=== PATIENT | male | born 1960 | race Caucasian/White ===

== ENCOUNTER 2022-07-17 05:32 | Observation (INO) ==
[2022-07-17] MEDS ORDERED: ceFAZolin 2 GM in NS PREMIX 2 GM/100 ML BAG IVPB ONE (05:59)
[2022-07-17] MEDS ORDERED: Tranexamic Acid 1 GM/100ML BAG 2,000 MG/200 ML BAG IV ONE (05:59)
[2022-07-17] MEDS ORDERED: Lactated Ringers 1000 ml BAG 1,000 ML IV SCH (06:00)
[2022-07-17] MEDS ORDERED: Buffered Lidocaine 1% SYRIN 1 ml INTRADERM ONE (06:00)
[2022-07-17] MEDS ORDERED: BUPIVACAINE **LIPOSOME/PF 13.3 MG/ML (266MG/ 20ML) VIAL (RESTRICTED) INFIL ONE (06:00)
[2022-07-17] MEDS ORDERED: Bupivacaine 0.25% SDV 30 ML ONE (07:02)
[2022-07-17] MEDS ORDERED: Bupivacaine 0.25% EPI 200,000 30 ML SDV ONE (07:02)
[2022-07-17] MEDS ORDERED: Ondansetron 4 mg VIAL 2 MG/ML 2 ml VIAL ONE (07:06)
[2022-07-17] MEDS ORDERED: Phenylephrine IV 10 MG/ML 1 ml VIAL ONE (07:06)
[2022-07-17] MEDS ORDERED: fentaNYL 100 mcg/2 ml 50 MCG/ML VIAL ONE ×4 (07:06→12:05)
[2022-07-17] MEDS ORDERED: Midazolam 2 mg/2 ml VIAL 1 mg/ml 2 ml VIAL (2 mg) ONE (07:06)
[2022-07-17] MEDS ORDERED: Propofol 10 MG/ML 20 ML BTL ONE ×2 (07:06→08:30)
[2022-07-17] MEDS ORDERED: Lidocaine 2% PF 5 ML VIAL ONE (07:06)
[2022-07-17] MEDS ORDERED: Dexamethasone IV 4 MG/ML VIAL 1 ml VIAL ONE (07:06)
[2022-07-17] MEDS ORDERED: Bupivacaine 0.5% SDV PF 30ML VIAL ONE (07:09)
[2022-07-17] MEDS ORDERED: Ketamine HCL 50 mg/ml 10 ml VIAL (500 MG) ONE (07:55)
[2022-07-17] MEDS ORDERED: Ondansetron 4 mg VIAL 2 MG/ML 2 ml VIAL IV PRN ×2 (08:27→11:02)
[2022-07-17] MEDS ORDERED: Naloxone 0.4 mg VIAL 0.4 mg/ml 1 ml VIAL IV PRN (08:27)
[2022-07-17] MEDS ORDERED: Acetaminophen IV 1 GM/100ML 1,000 MG/100 ML BAG IV ONE (08:54)
[2022-07-17] MEDS ORDERED: Magnesium Hydroxide LIQ 30 ML UDC PO PRN (11:02)
[2022-07-17] MEDS ORDERED: Lactulose 30 ml UDC PO PRN (11:02)
[2022-07-17] MEDS ORDERED: Ondansetron ODT 4 mg TAB 4 MG TAB PO PRN (11:02)
[2022-07-17] MEDS ORDERED: Morphine 2 MG/ML SYRINGE IV PRN (11:02)
[2022-07-17] MEDS: fentaNYL 100 mcg/2 ml 50 MCG/ML VIAL IV PRN ×5 (11:11→12:06)
[2022-07-17] MEDS ORDERED: Sevoflurane BOTTLE ONE (11:28)
[2022-07-17] MEDS: Lactated Ringers 1000 ml BAG 1,000 ML IV SCH (13:13)
[2022-07-17] MEDS ORDERED: Dextrose 50% Syringe 50 ml 25 GM/50 ML SYRINGE IV PUSH PRN (13:50)
[2022-07-17] MEDS: ceFAZolin 1 GM in Dextrose 1 GM/50 ML BAG IVPB SCH (16:05)
[2022-07-17] MEDS: Magnesium Hydroxide LIQ 30 ML UDC PO SCH (20:29)
[2022-07-17] MEDS ORDERED: Insulin GLARGINE 100 un/ml 10 ml VIAL SUBCUT SCH (21:00)
[2022-07-18] MEDS: Lactated Ringers 1000 ml BAG 1,000 ML IV SCH (00:03)
[2022-07-18] MEDS: ceFAZolin 1 GM in Dextrose 1 GM/50 ML BAG IVPB SCH ×2 (00:03→08:05)
[2022-07-18 06:29] LABS: Hematocrit 38 % (42-52); Hemoglobin 12.8 g/dL (14.0-18.0); Mean Platelet Volume 8.6 fL (7.4-10.4); Platelet Count 159 10^3/uL (150-450)
[2022-07-18 06:49] LABS: Calcium 8.7 mg/dL (8.6-10.3); Creatinine, Serum 0.82 mg/dL (0.67-1.17); Potassium 4.2 mmol/L (3.5-5.0); eGFR CKD-EPI 98.7 (>60)
[2022-07-18] MEDS: Magnesium Hydroxide LIQ 30 ML UDC PO SCH (08:06)
[2022-07-18] MEDS ORDERED: Vitamin THERAPEUTIC TAB PO SCH (09:00)
[2022-07-18 12:05] VITALS: BP 118/53
== END 2022-07-18 14:45 | disposition home or self-care (01) ==
LOC: SSU 05:32 → OR 05:32
PROVIDERS: ADMIT Orthopaedic Surgery Sports Medicine; ATTEND Orthopaedic Surgery Sports Medicine